=== PATIENT | female | born 1965 | race Caucasian/White ===

== ENCOUNTER → 2016-10-27 | Outpatient (CLI) | payer BC ==
[~2016-10-27] MED LIST: ESCI10TA PO; METF500T4 PO; cholesterol med
--- NOTE | 2016-10-27 14:10 | DI ---
Indication: ITS.REASON: R10.2 PELVIC PAIN PROCEDURE: US PELVIC NON OB W/TRANS VAG: Encounter: Initial Comparison: None Technique: Transabdominal and transvaginal imaging was performed using grayscale, color-flow, and duplex Doppler imaging. FINDINGS: The uterus is normal in size and shape measuring 6.6 cm in length x 2.5 cm in AP dimension x 4.4 cm in transverse dimension. There is a small uterine fibroid in the posterior mid body that measures a maximum 1.3 cm. The endometrium is homogeneous without focal abnormality, measuring 2.4 mm in thickness. No free fluid. The left ovary measures 2.2 x 1.1 x 1.4 cm. There is normal vascularity identified within the left ovary with duplex doppler. The right ovary measures 1.2 x 0.9 x 1.3 cm. There is normal vascularity identified within the right ovary with duplex doppler. IMPRESSION: No significant uterine or adnexal abnormality. No free fluid. .
== END ==
LOC: IMA 12:38
PROVIDERS: ATTEND Nurse Practitioner
DX: R10.2 Pelvic and perineal pain (principal)